=== PATIENT | male | born 1995 | race Caucasian/White ===

== ENCOUNTER 2024-06-22 03:26 | Emergency (ER) | payer OTHER, SELFPAY ==
[2024-06-22 03:28] VITALS: BP 178/100; PULSE 103; RESP 16; TEMP 37; O2SAT 99; BMI 31.7
--- NOTE | 2024-06-22 03:50 | ED.VIS.DENTA ---
HPI History of Present Illness Chief Complaint: Dental Informant: patient Narrative Narrative: 28-year-old male presenting to the emergency room with a chief complaint of. Patient states that he has some dental caries and 1 to severely decayed to the bone but when he woke yesterday cracked an additional tooth on the left upper side. He typically will go to [facility] if he needs dental care. Patient states that he has been taking Orajel and ibuprofen with no relief. Denies any bleeding from his gums. He is a smoker. No reported fevers. He states that he left work due to pain PFSH PFS Medical History Pneumonia Pneumothorax on right Smoker Seizures Home Medications ?Medication ?Instructions ?Recorded ?Last Taken ?Type clindamycin HCl 300 mg capsule 300 mg PO Q6H #40 CAPSULES 06/22/24 Unknown Rx (Cleocin HCl) oxycodone-acetaminophen 5 mg-325 1 tab PO Q6H PRN PRN Pain 3 days 06/22/24 Unknown Rx mg tablet #12 TABLETS Allergy/AdvReac Type Severity Reaction Status Date / Time Penicillins Allergy Anaphylaxis Verified 10/07/17 01:16 Surgical History History of appendectomy Social History Smoking Status: Current every day smoker tobacco type: cigarettes ROS ROS ED Constitutional Constitutional ED: Denies chills, fever(s) or weight loss Eyes Eyes: Denies change in vision or diplopia ENT ENT ED: Reports other Details: Dental and facial pain ; Denies ear pain, rhinorrhea or sore throat Cardiovascular Cardiovascular: Denies chest pain, orthopnea, palpitations or racing heartbeat Respiratory/Chest Respiratory/Chest: Denies cough, dyspnea or orthopnea Gastrointestinal Gastrointestinal: Denies abdominal pain, diarrhea, nausea or vomiting Genitourinary Genitourinary ED: Denies dysuria, hematuria or urinary frequency Musculoskeletal Musculoskeletal: Denies arthralgias or myalgias Integumentary Denies abscess or rash Neurologic Neurologic: Denies headache(s) or weakness Psychiatric Psychiatric: Denies anxiety, depression, suicidal ideation or suicidal thoughts Endocrine Endocrinology: Denies polydipsia, polyphagia or polyuria Allergic/Immunologic Allergic/Immunologic ED: Denies mouth swelling, tongue swelling or urticaria EXAM Physical Exam Const Vital Signs: 06/22/24 03:28 Temperature 98.6 F Temperature Source Oral Pulse Rate 103 H Respiratory Rate 16 Blood Pressure 178/100 H Blood Pressure Mean 126 Pulse Ox 99 Oxygen Delivery Method Room Air Positive well nourished and well developed General Appearance ED: well developed HEENT Reports normocephalic, head/scalp atraumatic and moist mucous membranes HEENT Narrative: Left upper premolar and molars demonstrate dental decay. 1 molar decayed down to gumline. There is some mild erythema of the gums around these teeth I do not appreciate significant gingivitis of the other teeth. There is no trismus. No facial erythema or significant swelling. Floor the mouth is soft. Tender upon palpation noted obvious drainable abscess Eyes PERRL and EOMs intact bilaterally Neck no lymphadenopathy, supple and no JVD Resp normal respiratory effort and clear to auscultation bilaterally Cardio regular rate, regular rhythm and no murmurs GI normal to inspection, nondistended, normoactive bowel sounds and non-tender Palpation: soft Back/Spine no CVA tenderness and normal ROM Extremity normal to inspection General Extremety ED: Negative for edema General Extremity: Negative for edema Neuro oriented x3 and CN's II-XII intact bilaterally Sensorium / Orientation: alert Motor Exam: strength 5/5 throughout Psych mental status grossly normal Mood & Affect: Negative for depressed or tearful Skin no rashes or lesions noted and no wounds MDM MDM MDM Narrative Medical decision making narrative: Differential diagnosis includes but not limited to dental caries dental abscess facial abscess Alber's angina gingivitis ANUG Patient be started on clindamycin and a few Percocet. Would recommend the immediate dental follow-up History & Record Review Discussion w/independent historian: Patient Discharge Plan Triage Chief Complaint: Dental ED Provider: Darius Payne Dx/Rx/DC Orders Clinical Impression: Dental caries, Pain, dental Instructions: ED Dental Cavity Prescriptions: New clindamycin HCl [Cleocin HCl] 300 mg capsule 300 mg PO Q6H Qty: 40 0RF oxycodone-acetaminophen 5-325 mg tablet 1 tab PO Q6H PRN PRN (Reason: Pain) 3 Days Qty: 12 0RF Primary Care Provider: Care Physician,No Primary Referrals: Care Physician,No Primary [Primary Care Provider] - Print Language: Khmer Disposition Disposition: Home, Self Care
[2024-06-22 03:59] VITALS: BP 162/100; PULSE 99; RESP 18; TEMP 37; O2SAT 97
== END 2024-06-22 04:01 | disposition home or self-care (01) ==
PROVIDERS: Emergency Provider Emergency Medicine; Visit Provider Emergency Medicine
DX: K02.9 Dental caries, unspecified (principal); K08.89 Other specified disorders of teeth and supporting structures; F17.210 Nicotine dependence, cigarettes, uncomplicated
CPT/HCPCS: 99282